=== PATIENT | female | born 1995 | race Caucasian/White ===

== ENCOUNTER 2016-05-12 18:30 | Emergency (ER) | payer MEDICAID ==
[~2016-05-12] VITALS: Ht 157.5 cm; Wt 67.6 kg
[2016-05-12 17:13] VITALS: BP 117/73
[~2016-05-12 18:30] MED LIST: ACETAMINOPHEN EXTRA STRENGTH 500 MG TAB ONE; ACETAMINOPHEN EXTRA STRENGTH 500 MG TAB PO PRN; LACTATED RINGERS 1,000 ML IV SCH
[2016-05-12 18:41] VITALS: BP 112/63
--- NOTE | 2016-05-12 19:05 | NUR ---
PT WHEELCHAIR ASSISTED TO BED 7 AT THIS TIME.
--- NOTE | 2016-05-12 19:15 | NUR ---
20/F BIB BOYFRIEND SENT FROM WITH 20G TO [facility], PER RECEVING L&D RN VANNESSA PT RECEIVED 1L OF LR AND 50MMG OF TYLENOL MANAGER EXPORT FROM L&D WITH FETUS STABLE. PT 30WKS PREG, FIRST . PT C/O SORE THROAT AND PEDERSON IN ED. DENIES N/V/D; SKIN IS PINK/WARM/DRY; AAOX4 WITH EVEN AND STEADY GAIT; LUNGS CLEAR BL; HR EVEN AND REGULAR; PT DENIES ANY CP OR SOB AT THIS TIME; PATIENT STATES PAIN OF 2/10 AT THIS TIME; VSS; PATIENT POSITIONED FOR COMFORT; HOB ELEVATED; BEDRAILS UP X2; BED DOWN. ER MD MADE AWARE OF PT STATUS.
--- NOTE | 2016-05-12 19:40 | NUR ---
PATIENT PRESENTS TO ED WITH SORE TROPAT AND FEVER. . PT STATES SINCE LAST NIGHT. TOOK TYLENOL X1, N/VX1; SKIN IS PINK/WARM/DRY; AAOX4 WITH EVEN AND STEADY GAIT; LUNGS CLEAR BL; HR EVEN AND REGULAR; PT DENIES ANY CP, SOB, OR COUGH AT THIS TIME; PATIENT STATES PAIN OF 0/10 AT THIS TIME; VSS; PATIENT POSITIONED FOR COMFORT; HOB ELEVATED; BEDRAILS UP X2; BED DOWN. ER MD MADE AWARE OF PT STATUS.
--- NOTE | 2016-05-12 19:45 | NUR ---
PATIENT PRESENTS TO ED WITH FEVER AND SORE THROAT . PT STATES SINCE YESTERDAY. TOOK TYLENOL AT HOME X1 . DENIES N/VX1/D; SKIN IS PINK/WARM/DRY; AAOX4 WITH EVEN AND STEADY GAIT; LUNGS CLEAR BL; HR EVEN AND REGULAR; PT DENIES ANY CP, SOB, OR COUGH AT THIS TIME; PATIENT STATES PAIN OF 0/10 AT THIS TIME; VSS; PATIENT POSITIONED FOR COMFORT; HOB ELEVATED; BEDRAILS UP X2; BED DOWN. ER MD MADE AWARE OF PT STATUS.
[2016-05-12 19:58] VITALS: BP 112/63
--- NOTE | 2016-05-12 19:58 | NUR ---
Patient discharged with v/s stable. Written and verbal after care instructions given and explained. Patient verbalized understanding. Ambulatory with steady gait. All questions addressed prior to discharge. Advised to follow up with PMD. IV REMOVED; CANNULA INTACT. PATIENT TOLERATED WELL.
[2016-05-26] MEDS ORDERED: PRENATAL VITAMI1 TA2 PO (22:41)
== END 2016-05-12 19:58 | disposition home or self-care (01) ==
LOC: MED 18:30 → EDSTATUS 18:30 → MED 19:58
DX: O26.893 Other specified pregnancy related conditions, third trimester (principal); J02.9 Acute pharyngitis, unspecified; R50.9 Fever, unspecified
CPT/HCPCS: 81000; 96360; 96361; 99283; J7120

== ENCOUNTER 2021-06-14 02:31 | Emergency (ER) | payer SELFPAY ==
[~2021-06-14] VITALS: Ht 157.5 cm; Wt 68.0 kg
[2021-06-14 02:31] VITALS: BP 138/74
[~2021-06-14 02:31] MED LIST changes: -ACETAMINOPHEN EXTRA STRENGTH 500 MG TAB ONE; -ACETAMINOPHEN EXTRA STRENGTH 500 MG TAB PO PRN; -LACTATED RINGERS 1,000 ML IV SCH; +PREN-546 PO
--- NOTE | 2021-06-14 02:31 | NUR ---
[place] [facility]. TAKEN TO [facility]
[2021-06-14 04:30] VITALS: BP 138/74
--- NOTE | 2021-06-14 04:30 | NUR ---
Patient discharged with v/s stable. Written and verbal after care instructions given and explained. Patient verbalized understanding. Police with in custody. All questions addressed prior to discharge. Advised to follow up with PMD.
== END 2021-06-14 04:30 ==
LOC: MED 02:31
DX: F10.129 Alcohol abuse with intoxication, unspecified (principal); Z02.89 Encounter for other administrative examinations; Z79.899 Other long term (current) drug therapy
CPT/HCPCS: 70450; 99284